=== PATIENT | female | born 1990 | race Caucasian/White ===

== ENCOUNTER 2024-09-03 18:12 | Emergency (ER) | payer OTHER, SELFPAY ==
[2024-09-03] VITALS (9 sets, daily range): BP systolic 102–132; BP diastolic 71–80; PULSE 64–85; RESP 16; TEMP 36.4; O2SAT 91–100; BMI 31.6
--- NOTE | 2024-09-03 22:32 | ED_ITS ---
HPI - Headache General Chief Complaint: Headache Stated Complaint: migraine x7 days Time Seen by Provider: 09/03/24 22:32 Mode of arrival: Ambulatory History of Present Illness HPI Narrative: 34-year-old female with a past medical history of migraines comes into the ED from home for evaluation of migraine headache, she states this is typical of her migraine headaches however they just have never lasted this long, states it has been ongoing for past week. States that she did not have any recent trauma. Did try taking her rizatriptan without much relief therefore decided come into the ED for further evaluation treatment. At time of evaluation patient without focal deficits NIH of 0 no other complaints at this time Related Data Allergies Allergy/AdvReac Type Severity Reaction Status Date / Time No Known Drug Allergies Allergy Verified 09/03/24 23:03 Review of Systems Review of Systems Narrative: General: Denies fever, chills, weight loss HEENT: Positive headache, denies eye drainage, eye irritation, head trauma, sore throat, voice change Cardiovascular: Denies any chest pain, palpitations, tachycardia Respiratory: Denies any shortness of breath, cough, wheeze, stridor GI/: Denies any abdominal pain, nausea, vomiting, diarrhea, bright red blood per rectum, melanotic stools, urinary frequency, urinary retention, dysuria, hematuria MSK: Denies any joint pain, muscle pains, swelling Skin: Denies any rashes, lesions, discoloration Neuro: Denies any headache, lightheadedness, dizziness, fainting, weakness Psych: Denies SI/HI Patient History Social History Smoking Status: Never smoker Smoking Status: Never smoker Exam Narrative Exam Narrative: General: Cooperative, well-developed, not in acute distress HEENT: Normocephalic, atraumatic, PERRLA, normal sclera, eyelids normal Neck: Active full range of motion, atraumatic Chest: Normal to inspection, negative crepitus, no overlying erythema ecchymosis Respiratory: Normal respiratory effort, not in acute respiratory distress, clear to auscultation bilaterally negative cough, wheeze, tachypnea, rhonchi, rales Cardiology: Regular rate rhythm negative gallop, murmur, rubs GI/: No tenderness to palpation, soft, non rigid, normal to inspection, exam deferred MSK: Full active range of motion in all 4 extremities, atraumatic, no tenderness to palpation of any bony prominences Skin: No rashes or lesions noted Neuro: NIH of 0 Alert awake oriented x3, moves all 4 extremities spontaneously, cranial nerves intact, able to answer all questions appropriately follows commands appropriately Psych: Cooperative, negative suicidal or homicidal ideations Initial Vital Signs Initial Vital Signs: Vital Signs Temperature 97.6 F 09/03/24 18:38 Pulse Rate 85 09/03/24 18:38 Respiratory Rate 16 09/03/24 18:38 Blood Pressure 132/80 09/03/24 18:38 Pulse Oximetry 100 09/03/24 18:38 Oxygen Delivery Method Room Air 09/03/24 18:38 Course Orders Ordered: Discontinued Medications Acetaminophen (Acetaminophen 325 Mg Tablet) 975 mg PO NOW ONE Stop: 09/03/24 22:34 Last Admin: 09/03/24 23:06 Dose: 975 mg Documented By: DAY Dexamethasone (Dexamethasone 10 Mg/Ml Vial) 10 mg IV NOW ONE Stop: 09/03/24 22:34 Last Admin: 09/03/24 23:05 Dose: 10 mg Documented By: DAY Diphenhydramine HCl (Diphenhydramine 50 Mg/Ml Vial) 25 mg IV NOW ONE Stop: 09/03/24 22:34 Last Admin: 09/03/24 23:05 Dose: 25 mg Documented By: DAY Sodium Chloride (Normal Saline 0.9%) 1,000 mls @ 1,000 mls/hr IV BOLUS ONE Stop: 09/03/24 23:32 Last Admin: 09/03/24 23:03 Dose: 1,000 mls/hr Documented By: DAY Prochlorperazine (Prochlorperazine 10 Mg/2 Ml Vial) 10 mg IV NOW ONE Stop: 09/03/24 22:34 Last Admin: 09/03/24 23:05 Dose: 10 mg Documented By: DAY Vital Signs Vital signs: Vital Signs - 8 hr 09/03/24 18:38 09/03/24 22:17 09/03/24 22:18 Temperature 97.6 F Pulse Rate 85 66 Respiratory Rate 16 Blood Pressure 132/80 124/80 Pulse Oximetry 100 91 Oxygen Delivery Method Room Air 09/03/24 22:18 09/03/24 22:30 09/03/24 22:30 Temperature Pulse Rate 66 68 Respiratory Rate Blood Pressure 112/79 Pulse Oximetry 99 100 Oxygen Delivery Method Room Air 09/03/24 23:00 09/03/24 23:02 09/03/24 23:02 Temperature Pulse Rate 66 66 Respiratory Rate Blood Pressure 122/79 Pulse Oximetry 99 100 Oxygen Delivery Method Room Air 09/03/24 23:05 Temperature Pulse Rate 64 Respiratory Rate Blood Pressure 122/79 Pulse Oximetry Oxygen Delivery Method MDM - Headache Differential Diagnosis Differential diagnosis: Likely migraine, tension headache and headache MDM Narrative Medical decision making narrative: 32-year-old female with a history of migraine headaches presenting for typical migraine headache, she states that she did try taking her rizatriptan but did this not help, she states that this normally does, however she has had persistent symptoms for the past week therefore decided come into the ED for further evaluation treatment. Time of evaluation patient with NIH of 0 no focal deficits. Patient had migraine cocktail performed here in the emergency department with complete resolution of symptoms she was given strict return precautions she verbalized understanding of this agrees to being discharged home with outpatient follow up Discharge Plan Departure Patient Disposition: Home Clinical Impression: Migraine Instructions: DI for Migraine Activity Restrictions/Additional Instructions: Please follow up with your primary care doctor Please read the discharge instructions sheet carefully and bring all papers to all doctor follow-up visits, as it may contain information that your doctor may want to see. Disease processes change and evolve, if your symptoms worsen or if you develop any new symptoms that are concerning to you please return for evaluation. Your evaluation today does not show any evidence of any life- threatening/serious illnesses requiring admission to the hospital or surgery. Please follow-up with your doctor for re-evaluation in approximately 1 day. Seek immediate medical attention for any worrisome symptoms. *If you do not have a primary care provider please contact the [facility] Resource line at [phone]. They will ask some questions about your medical history and help get you set up with a doctor in the community. Referrals: ProviderSally [Primary Care Provider] - Stand Alone Forms: Patient Portal/API/Survey
[2024-09-03] MEDS: SODIUM CHLORIDE 0.9% 1,000 ML 1000 ML IV (23:03)
[2024-09-03] MEDS: PROCHLORPERAZINE 10 MG/2 ML VIAL IV (23:05)
[2024-09-03] MEDS: diphenhydrAMINE 50 MG/ML VIAL 25 MG IV (23:05)
[2024-09-03] MEDS: DEXAMETHASONE 10 MG/ML VIAL IV (23:05)
[2024-09-03] MEDS: ACETAMINOPHEN 325 MG TABLET 975 MG PO (23:06)
[2024-09-04] VITALS: BP 97/52; PULSE 66; O2SAT 95
[2024-09-04 00:13] VITALS: BP 117/58; PULSE 102; O2SAT 96
[2024-09-04 00:30] VITALS: PULSE 62; O2SAT 94
[2024-09-04 00:31] VITALS: BP 90/51; PULSE 65; O2SAT 94
[2024-09-04 00:33] VITALS: BP 124/76; PULSE 73; O2SAT 95
[2024-09-04 01:00] VITALS: BP 118/78; PULSE 71; O2SAT 95
== END 2024-09-04 01:25 | disposition home or self-care (01) ==
PROVIDERS: Emergency Provider Student in an Organized Health Care Education/Training Program
DX: G43.909 Migraine, unspecified, not intractable, without status migrainosus (principal)
CPT/HCPCS: 96361; 96374; 96375; 99284; J0780; J1100; J1200

== ENCOUNTER → 2024-10-10 15:51 | Outpatient (CLI) | payer OTHER, SELFPAY ==
--- NOTE | 2024-10-10 15:53 | DI.ECHO.S_ITS ---
[facility] : : [address] : : [place] : : [id number] : : Phone: [phone] Echocardiogram Report + + :Name: CHINO BERMUDEZ Study Date: 10/10/2024 Height: 65 in : :[facility] ReadingLocation: Weight: 185 lb : : Gender: Female BSA: 1.9 m2 : :: 1990 Age: 34 yrs BP: 143/79 mmHg: :Reason For Study: PVC : :Ordering Physician: ISMAEL, : :MARY Performed By: Mathieu Lee : :Referring: [email or web address] : + + Interpretation Summary The ejection fraction is estimated to be 60-65%. There is no significant valvular heart disease. Procedure: A two-dimensional transthoracic echocardiogram with color flow and Doppler was performed. The study quality was technically good. There is no prior echocardiogram noted for this patient. The patient was in normal sinus rhythm during the exam. Left Ventricle: The left ventricle is normal in size. There is normal left ventricular wall thickness. There is no ventricular septal defect visualized. The ejection fraction is estimated to be 60-65%. There are no focal wall motion abnormalities. Diastolic parameters suggest probable normal left ventricular diastolic function and normal filling pressures. Right Ventricle: The right ventricle is normal in size and function. Atria: The left atrial size is normal. Right atrial size is normal. There is no Doppler evidence for an interatrial shunt. Mitral Valve: The mitral valve leaflets appear normal. There is no evidence of stenosis, fluttering, or prolapse. There is trace mitral regurgitation. Aortic Valve: The aortic valve is trileaflet. The aortic valve opens well. There is trace aortic regurgitation. Tricuspid Valve: The tricuspid valve is not well visualized, but is grossly normal. No tricuspid regurgitation. Pulmonic Valve: The pulmonic valve is not well seen, but is grossly normal. There is trace pulmonic regurgitation. Great Vessels: The aortic root is normal size. The dimensions of the ascending aorta are normal. The pulmonary artery is normal size. The IVC is of normal diameter and collapses greater than 50% with a sniff. This suggests a low right atrial pressure of 3 mm Hg. Pericardium/ Pleura There is no pericardial effusion. There is no pleural effusion. MMode/2D Measurements & Calculations LVIDd: 3.6 cm LVOT diam: 2.0 cm LVIDs: 2.5 cm Ao root diam: 2.9 cm FS: 31.2 % asc Aorta Diam: 2.4 cm EPSS: 0.57 cm Ao Arch Diam (Prox Trans): 1.7 cm IVSd: 0.94 cm LVPWd: 0.93 cm LV tovar. diameter/BSA (cm/m^2): 1.9 LV sys. diameter/BSA (cm/m^2): 1.3 LA A2 area: 19.6 cm2 RA long axis: 4.1 cm LA A4 area: 18.8 cm2 RA area: 14.1 cm2 LA length (vol): 5.0 cm RA vol: 41.5 ml LA vol: 62.7 ml RA : 21.7 ml/m2 LA vol index: 32.8 ml/m2 IVC diam: 1.3 cm RVD1 (basal): 3.6 cm RVD2 (mid): 3.4 cm TAPSE: 2.5 cm Doppler Measurements & Calculations Ao V2 max: 130.9 cm/sec LVOT Max Ha: 105.5 cm/sec Ao V2 mean: 94.2 cm/sec LV V1 max P.4 mmHg Ao max P.9 mmHg LV V1 VTI: 23.5 cm Ao mean P.8 mmHg JAZMIN(I,D): 2.5 cm2 Ao V2 VTI: 28.7 cm JAZMIN(V,D): 2.4 cm2 sev ratio: 0.82 JAZMIN indexed to BSA (cm^2/m^2): 1.3 MV E max ha: 71.8 cm/sec PA V2 max: 77.5 cm/sec MV A max ha: 58.6 cm/sec PA V2 mean: 57.1 cm/sec MV E/A: 1.2 PA mean P.4 mmHg Med Peak E' Ha: 11.5 cm/sec PA pr(Accel): 25.9 mmHg E/E' med: 6.3 Lat Peak E' Ha: 12.3 cm/sec E/E' lat: 5.8 E/e' average: 6.1 MV dec time: 0.14 sec SV(LVOT): 70.7 ml Reading Physician:11:16 AM
== END ==
PROVIDERS: Referring Provider Physician Assistant; Visit Provider Physician Assistant
DX: I49.3 Ventricular premature depolarization (principal)
CPT/HCPCS: 93306